=== PATIENT | female | born 1960 | race Caucasian/White ===

== ENCOUNTER 2023-11-07 09:41 | Outpatient (CLI) | payer MEDICARE, MEDICAID, SELFPAY ==
--- NOTE | 2023-11-07 11:07 | ECG_ITS ---
Test Date: 2023-11-07 11:27:26 Measurements Intervals [place] Rate: 75 P: 28 SC: 153 QRS: 25 QRSD: 80 T: 45 QT: 376 QTc: 422 Interpretive Statements SINUS RHYTHM DELAYED PRECORDIAL R/S TRANSITION BASELINE ARTIFACT- I, II, III, AVR, AVL, AVF BORDERLINE ECG No previous ECG available for comparison Electronically Signed On 11-07-2023 13:44:48 CDT by Abdias Harris D.O.
[2023-11-07 11:52] LABS: Basophils Percent Auto 0.5 % (0.2-1.2); Eosinophils Percent Auto 0.2 % (0-4.4); Hematocrit 44.8 % (37.0-47.0); Hemoglobin 14.8 g/dL (12.0-15.0); Immature Granulocyte Absolute 0.03 K/mm3 (0.00-0.031); Immature Granulocyte Percent A 0.4 % (0-0.5); Immature Platelet Fraction Pct 5.7 % (0.9-11.2); Lymphocytes Absolute Auto 1.85 K/mm3 (0.9-3.2); Mean Corpuscular Hemoglobin 33.9 pg (26-34); Mean Corpuscular Volume 102.8 fl (80-100); Mean Platelet Volume 10.9 fl (7.4-10.4); Monocytes Absolute Auto 0.8 K/mm3 (0.1-0.6); Monocytes Percent Auto 9.1 % (2.6-8.5); Neutrophils Absolute Auto 5.7 K/mm3 (1.3-6.7); Neutrophils Percent Auto 67.8 % (45.5-73.1); Platelet Count Result 146 k/mm3 (150-375); Red Blood Count 4.36 M/mm3 (4.2-5.4); Red Cell Distribution Width 12.2 % (11.5-14.5); White Blood Count 8.4 K/mm3 (4.5-10.0)
[2023-11-07 11:58] LABS: Albumin Level 4.6 g/dL (3.5-5.1)
[2023-11-07 12:04] LABS: Anion Gap 9 mmol/L (4-12); Blood Urea Nitrogen 19 mg/dL (7-17); Calcium 10.1 mg/dL (8.4-10.2); Carbon Dioxide 24 mmol/L (22-30); Chloride 105 mmol/L (98-107); Estimated Glomerular Filt Rate 45; Glucose 82 mg/dL (65-110); Potassium 4.6 mmol/L (3.4-5.0); Sodium 138 mmol/L (137-145)
[2023-11-07 12:05] LABS: Urine Cotinine NEGATIVE
[2023-11-07 13:02] LABS: MRSA (PCR) NOT DETECTED (NOT DETECTE)
== END 2023-11-07 09:42 | disposition home or self-care (01) ==
PROVIDERS: Anesthesiology; PCP Internal Medicine; Visit Provider Orthopaedic Surgery
DX: Z01.818 Encounter for other preprocedural examination (principal); M17.12 Unilateral primary osteoarthritis, left knee; E11.9 Type 2 diabetes mellitus without complications
CPT/HCPCS: 36415; 80048; 80307; 82040; 83036; 85025; 85055; 86850; 86900; 86901; 87641; 93005

== ENCOUNTER 2023-11-15 13:57 | Observation (INO) | payer MEDICARE, MEDICAID, SELFPAY ==
[2023-11-07 10:02] VITALS: BMI 32.3
--- NOTE | 2023-11-07 10:36 | PC.NURSE ---
Addendum entered by Nayely Olmstead RN 11/07/23 10:48: TOTAL JOINT CLASS 11/09/23 AT 10 AM POB 2 Original Note: Report to the Outpatient Waiting Room, entrance under the green pavilion located off [facility], at time _6AM on date __11/14/23 . Planned Procedure Time: __7:30 AM .? Time changes happen often and if your time is changed the preop area will call you the afternoon before. - You and your visitor will be asked to self-screen and do not enter if you have any COVID symptoms. Please call surgeon if you need to reschedule. - A mask is optional within the hospital at this time. Patients may have clear liquids (water, carbonated beverages, clear teas, apple juice) until 3 hours prior to surgery( 4:30AM) with a maximum of 20 ounces. - No food from midnight until time of surgery and no smoking - Infants may have breast milk until 4 hours before surgery, formula 6 hours prior to surgery. - Children will be allowed to drink immediately following surgery.? If applicable, please bring a bottle or sippy cup to assist with drinking. Juice, water, soda, and popsicles are readily available.? For infants on formula, please bring formula the day of surgery.? Pacifiers are allowed. Take only the following medications with a SIP of water on the morning of surgery: _ALPRAZOLAM,ARIPIPRAZOLE,EYE DROPS,HYDROXYZINE, DO NOT STOP ANY OF YOUR OTHER PRESCRIPTION MEDICATIONS PRIOR TO SURGERY EXCEPT THE FOLLOWING Medications to discontinue per physician HOLD ALL VITAMINS AND SUPPLEMENTS 3 DAYS PRE OP .LAST DOSE11/10/23 Date to take last dose Please no make-up, nail arabic, hairspray, perfume, deodorant, or body powder the day of surgery.? No jewelry (including any body piercings) or valuables the day of surgery, leave them at home.? Please take a shower or bath the night before, or the morning of, surgery with an antibacterial soap.? Wear comfortable, loose fitting clothing.? Children are encouraged to wear pajamas. - Jewelry must be removed prior to entering the operating room.? Rings and piercings that are not removed may be cut off. - The hospital will not accept responsibility for valuables.? - Please leave all valuables, including medications, at home the day of surgery. If you are going home after surgery, a licensed public transit trolley driver must drive you home.? - NO public transportation without another adult if you receive anesthesia. - We recommend that an adult stay with you for 24 hours following discharge. - We also recommend that you do not drive, make important decision, drink alcoholic beverages, or take any drugs that were not prescribed by your health care provider for at least 24 hours after your discharge time. For Pediatric surgeries, we recommend two adults accompany the child home. Follow any additional instructions given to you from your surgeon. VERBAL AND WRITTEN instructions given to _PATIENT and asked if any additional questions and then verbalized understanding. Patient advised to call surgeon office or pre surgery nurse liaison [phone] if any additional questions.
[2023-11-07 11:05] VITALS: BP 105/74; PULSE 84; RESP 18; TEMP 36.7; O2SAT 97
--- NOTE | 2023-11-10 07:32 | PM.IMHP ---
H&P: HPI History of Present Illness Date/Time: 11/10/23 07:32 Chief Complaint: Patient has osteoarthritis left knee. She has had extensive conservative treatment and has failed conservative treatment at this time. She would like to proceed knee replacement surgery. Review of Systems Musculoskeletal: Musculoskeletal: Reports myalgias, Reports arthralgias, Reports joint swelling and Reports stiffness [facility] Family History Family History Other Bipolar 1 disorder Diabetes mellitus Hypertension Social History Social History (Updated 10/11/23 @ 11:15 by KRISTOPHER Brady) Smoking packs per day: 0.5 Smoking cigarettes per day: 10.0 Years smoked: 45 Smoking pack-years: 22.50 Smoking status: Former smoker Tobacco type: cigarettes Second hand tobacco smoke exposure: Yes Smoking end date: 10/04/23 Additional smoking assessment comments: DENIES ANY FORM OF TOBACCO USE Alcohol intake: never Substance use: never Substance use type: does not use Do You Feel Safe in your Home?: Yes Lack of Transportation: No Lack of Food: Never True Current Housing: I Have Housing Concerned About Future Housing: No Difficulty Paying Gas/Electric Bills: No Difficulty Paying for Meds: No Currently Unemployed: No Education: High School Diploma/GED Difficulty w/ Childcare or Family Care: No Living arrangements: alone Additional living arrangements comments: LIVES AT [place] Additional occupation/education comments: disabled Gender identity (if verbalized by the patient): Female Spiritual care concerns: No Meds Home Medications and Allergies Home Medications Medication Instructions Recorded Confirmed Type albuterol sulfate 90 mcg/actuation 1 puff inhalation PRN PRN 09/29/23 11/07/23 History aerosol inhaler Shortness Of Breath alprazolam 0.5 mg tablet 0.5 mg PO TID 09/29/23 11/07/23 History aripiprazole 15 mg tablet 7.5 mg PO DAILY 09/29/23 11/07/23 History atorvastatin 40 mg tablet 40 mg PO DAILY 09/29/23 11/07/23 History azelastine 0.05 % eye drops 1 drp EACH EYE BID 09/29/23 11/07/23 History baclofen 20 mg tablet 20 mg PO PRN PRN Muscle Spasm 09/29/23 11/07/23 History dicyclomine 10 mg capsule 10 mg PO PRN PRN IBS 09/29/23 11/07/23 History empagliflozin 25 mg tablet 25 mg PO DAILY 09/29/23 11/07/23 History (Jardiance) ergocalciferol (vitamin D2) 1,250 1,250 mcg PO MONTHLY 09/29/23 11/07/23 History mcg (50,000 unit) capsule (Vitamin D2) fluvoxamine 100 mg tablet 100 mg PO QHS 09/29/23 11/07/23 History fluvoxamine 50 mg tablet 50 mg PO QHS 09/29/23 11/07/23 History hydroxyzine pamoate 25 mg capsule 25 mg PO TID 09/29/23 11/07/23 History lisinopril 20 mg tablet 20 mg PO DAILY 09/29/23 11/07/23 History prazosin 1 mg capsule 1 mg PO HS 09/29/23 11/07/23 History acetaminophen 500 mg capsule 1,000 mg PO Q6H PRN Pain 11/07/23 11/07/23 History cyanocobalamin (vitamin B-12) 1,000 mcg PO DAILY 11/07/23 11/07/23 History 1,000 mcg tablet dulaglutide 3 mg/0.5 mL 3 mg subcut WEEKLY 11/07/23 11/07/23 History subcutaneous pen injector (Trulicity) Allergies Allergy/AdvReac Type Severity Reaction Status Date / Time Penicillins AdvReac Intermediate Hives Verified 11/07/23 10:04 risperidone [From Risperdal] AdvReac Intermediate Swelling Verified 11/07/23 10:04 of Lip/Tongue/Throat tramadol AdvReac Intermediate Swelling Verified 11/07/23 10:04 of Lip/Tongue/Throat Exam Narrative: Examination of left knee demonstrates motion from 3-110 degrees. She has varus deformity grinding crepitus and pain with manipulation. She walks with an antalgic gait. Neurologically she is intact. Eyes: General: appearance normal, both eyes and all related structures Neck: Neck: supple Resp: Effort & Inspection: normal respiratory effort Cardio: Rate: regular rate Rhythm: regular rhythm Radiology Report
[2023-11-14] VITALS (13 sets, daily range): BP systolic 98–119; BP diastolic 52–75; PULSE 87–102; RESP 16–24; TEMP 36.5–37.8; O2SAT 94–100
[2023-11-14] MEDS: ACETAMINOPHEN 500 MG TABLET 1000 MG PO (06:31)
--- NOTE | 2023-11-14 06:38 | WPDANESEPPF ---
Anes - Initial Pre Proc Eval Procedure: Operation Date: 11/14/23 07:30 Proposed Procedures p Left Total Knee Arthroplasty - Ruben Del Valle MD Date/Time: 11/14/23 06:38 Surgeon: Ruben Del Valle MD Pre Op Diagnosis: oa left knee Patient Data Age: 63 Gender: F Height: 1.65 m Weight: 88 kg Last Vital Signs Temp 36.7 C 11/07/23 11:05 Pulse 84 11/07/23 11:05 Resp 18 11/07/23 11:05 BP 105/74 11/07/23 11:05 Pulse Ox 97 11/07/23 11:05 O2 Del Method Room Air 11/07/23 11:05 Allergies Allergy/AdvReac Type Severity Reaction Status Date / Time Penicillins AdvReac Intermediate Hives Verified 11/14/23 06:08 risperidone [From Risperdal] AdvReac Intermediate Swelling Verified 11/14/23 06:08 of Lip/Tongue/Throat tramadol AdvReac Intermediate Swelling Verified 11/14/23 06:08 of Lip/Tongue/Throat Home Medications Medication Instructions Recorded Confirmed Type albuterol sulfate 90 mcg/actuation 1 puff inhalation PRN PRN 09/29/23 11/07/23 History aerosol inhaler Shortness Of Breath alprazolam 0.5 mg tablet 0.5 mg PO TID 09/29/23 11/07/23 History aripiprazole 15 mg tablet 7.5 mg PO DAILY 09/29/23 11/07/23 History atorvastatin 40 mg tablet 40 mg PO DAILY 09/29/23 11/07/23 History azelastine 0.05 % eye drops 1 drp EACH EYE BID 09/29/23 11/07/23 History baclofen 20 mg tablet 20 mg PO PRN PRN Muscle Spasm 09/29/23 11/07/23 History dicyclomine 10 mg capsule 10 mg PO PRN PRN IBS 09/29/23 11/07/23 History empagliflozin 25 mg tablet 25 mg PO DAILY 09/29/23 11/07/23 History (Jardiance) ergocalciferol (vitamin D2) 1,250 1,250 mcg PO MONTHLY 09/29/23 11/07/23 History mcg (50,000 unit) capsule (Vitamin D2) fluvoxamine 100 mg tablet 100 mg PO QHS 09/29/23 11/07/23 History fluvoxamine 50 mg tablet 50 mg PO QHS 09/29/23 11/07/23 History hydroxyzine pamoate 25 mg capsule 25 mg PO TID 09/29/23 11/07/23 History lisinopril 20 mg tablet 20 mg PO DAILY 09/29/23 11/07/23 History prazosin 1 mg capsule 1 mg PO HS 09/29/23 11/07/23 History acetaminophen 500 mg capsule 1,000 mg PO Q6H PRN Pain 11/07/23 11/07/23 History cyanocobalamin (vitamin B-12) 1,000 mcg PO DAILY 11/07/23 11/07/23 History 1,000 mcg tablet dulaglutide 3 mg/0.5 mL 3 mg subcut WEEKLY 11/07/23 11/07/23 History subcutaneous pen injector (Trulicity) rivaroxaban 10 mg tablet (Xarelto) 10 mg PO DAILY PE Prophylaxis s/p 11/11/23 Rx joint replacement surgery 10 days #10 tabs Patient hx anesthesia problems: none Family hx anesthesia problems: none Results Review: All pre-operative results and documents have been reviewed as part of the pre-operative evaluation. [facility] Past Medical History Medical History (Updated 11/14/23 @ 06:39 by Zhou Alcala DO) Bipolar disorder Diabetes type 2, controlled GERD (gastroesophageal reflux disease) History of uterine cancer Hyperlipidemia Hypertension OCD (obsessive compulsive disorder) Family History Family History Other Bipolar 1 disorder Diabetes mellitus Hypertension Social History Social History (Updated 10/11/23 @ 11:15 by KRISTOPHER Brady) Smoking packs per day: 0.5 Smoking cigarettes per day: 10.0 Years smoked: 45 Smoking pack-years: 22.50 Smoking status: Former smoker Tobacco type: cigarettes Second hand tobacco smoke exposure: Yes Smoking end date: 10/04/23 Additional smoking assessment comments: DENIES ANY FORM OF TOBACCO USE Alcohol intake: never Substance use: never Substance use type: does not use Do You Feel Safe in your Home?: Yes Lack of Transportation: No Lack of Food: Never True Current Housing: I Have Housing Concerned About Future Housing: No Difficulty Paying Gas/Electric Bills: No Difficulty Paying for Meds: No Currently Unemployed: No Education: High School Diploma/GED Difficulty w/ Childcare or Family Care: No
--- NOTE | 2023-11-14 06:40 | WPDHPUPDATE1 ---
History and Physical Update Update Date/Time: 11/14/23 06:40 History and Physical has been reviewed, including an updated exam of the patient. There are NO changes in the patient's condition. Risks, benefits, and alternatives have been discussed and questions answered. Patient agrees to proceed with procedure.
[2023-11-14] MEDS: LACTATED RINGERS 1,000 ML 30 ML IV CONT ×2 (06:44→09:22)
[2023-11-14] MEDS: VANCOMYCIN 1,250 MG/NS 250 ML BAG 166.67 MG IVPB (06:45)
[2023-11-14 06:48] LABS: Glucose Point of Care 91 mg/dl (65-105)
[2023-11-14] MEDS: TRANEXAMIC ACID 1,000MG/ISO100 1,000 MG/100 ML BAG 200 MG IVPB (07:08)
--- NOTE | 2023-11-14 07:18 | WPDANESPNB ---
Anes - Peripheral Nerve Block Date/Time: 11/14/23 07:18 I have discussed with the patient/family/POA the placement of a peripheral nerve block for post-operative pain management, including associated risks, benefits, complications, and side effects. Alternative methods of post-operative analgesia were detailed. Questions were solicited and answers provided to the satisfaction of the patient/family/POA. Time-Out: A pre-procedural Time-Out was completed immediately before starting the procedure and confirmed: Patient Identification, Site, Procedure, Patient Position and the Availability of Requisite Equipment. Clinical Indications: Acute post-operative pain management requested by the operative surgeon. Nerve Block Insertion Note Anes-nerve block: adductor canal left Patient position: supine Skin prep: chlorhexidine Needle: 22 gauge, stimulating, insulated echogenic needle. Needle length: 80 mm Technique: ultrasound Injectate: bupivacaine 0.5% with epi 5 mcg/ml (30cc - no epi) Observations: tolerated well Complications: none Procedure start time:: 712 Procedure end time:: 716
[2023-11-14] MEDS: ceFAZolin 2 GM/D5W 50 ML 2 GM/50 ML BAG IVPB ×3 (07:25→23:20)
[2023-11-14] MEDS: SODIUM CHLORIDE 0.9% IV 38.7 ML, MORPHINE SULFATE INJ (*CRX) 2 MG, ROPivacaine HCL 1% 2... INFILTRATE (08:23)
--- NOTE | 2023-11-14 08:56 | P.OP_ITS ---
Procedure Note - Detailed Date of Procedure 11/14/23 Pre-op Diagnosis Osteoarthritis LEFT knee Post-op Diagnosis Same Procedure Performed LEFT total knee arthroplasty Surgeon Ruben Del Valle MD Disabilities Services Officer Tex Mercado Anesthesia General Indications Pain and Arthritis Description of Procedure The patient was brought to operating room #8. A general anesthetic was administered. Placed on the operating table and sterilely prepped and draped in usual manner. A longitudinal incision was made. Tourniquet inflated to 300 mmHg for a total of 45 minutes. Dissection was carried down to the fascia. Medial parapatellar incision was made and the patella subluxated laterally. Patella cut from 23 to 15 mm and sized for a 34 mm button. The tibia was cut perpendicular to the long axis and femur cut in 5 degrees of valgus. A 65 femur trialed. 67 tibia was felt to fit the best. The soft tissues balanced, hemostasis obtained. All [address], 67 tibia, 65 femur, 34 mm patella, and 10AS mm poly. Motion was 0-125 degrees with good stability in both flexion and extension. The wound was closed with #2 Vicryl, 2-0 Vicryl and sergo. [employer]plants [employer] Estimated Blood Loss 200 Drains No Packing No Pathology None sent Complications No immediate complications Condition Stable Disposition PACU [facility] Billing Surgery - Charge Forward: Surgery Billing (40005 Total Knee)
[2023-11-14] MEDS: fentaNYL CITRATE INJ (*CRX) 100 MCG/2 ML VIAL 25 MCG IV PUSH ×4 (09:32→10:07)
[2023-11-14 10:08] LABS: Glucose Point of Care 148 mg/dl (65-105)
--- NOTE | 2023-11-14 10:53 | ADMGEN ---
This patient, Chitra Davila, was admitted to [facility] Surg Room 309-01. Patient/family oriented to hospital policies and general routines including ID bracelet, bed and alarms, visiting hours, pain management, procedures, bathroom and other care routines, personal items, smoking policy, room service/diet, and visiting hours. Information on how to activate the Rapid Response Team has been discussed. Patient/Family are encouraged to report perceived risks to care and to ask questions if they do not understand what they are told or what they should do.
[2023-11-14] MEDS: HYDROcodone/acetaminophen (*CRX) 7.5-325 MG TABLET 1 TAB PO ×2 (11:17→15:14)
[2023-11-14] MEDS: ARIPiprazole 5 MG TABLET PO (12:10)
[2023-11-14] MEDS: EMPAGLIFLOZIN 25 MG TABLET PO (12:10)
[2023-11-14] MEDS: hydrOXYzine pamoate 25 MG CAPSULE PO ×2 (12:10→17:18)
[2023-11-14] MEDS: ARIPiprazole 2.5 MG TABLET PO (12:10)
[2023-11-14] MEDS: ALPRAZolam (*CRX) 0.5 MG TABLET PO ×2 (12:10→17:18)
[2023-11-14] MEDS: IBUPROFEN IV 800 MG/200 ML 800 MG/200 ML BAG 400 MG IVPB (12:14)
[2023-11-14] MEDS: lisinopriL 20 MG TABLET PO (12:18)
[2023-11-14 13:44] LABS: Alanine Aminotransferase 27 U/L (6-35); Albumin Level 4.2 g/dL (3.5-5.1); Alkaline Phosphatase 77 U/L (38-126); Anion Gap 12 mmol/L (4-12); Aspartate Amino Transferase 22 U/L (14-36); Bilirubin,Total 0.7 mg/dL (0.2-1.3); Blood Urea Nitrogen 16 mg/dL (7-17); Calcium 9.6 mg/dL (8.4-10.2); Carbon Dioxide 22 mmol/L (22-30); Chloride 105 mmol/L (98-107); Estimated CRCL calculation 42 ml/min; Estimated Glomerular Filt Rate 41; Glucose 120 mg/dL (65-110); Potassium 4.2 mmol/L (3.4-5.0); Sodium 139 mmol/L (137-145)
[2023-11-14 13:45] LABS: Basophils Percent Auto 0.2 % (0.2-1.2); Hematocrit 41.5 % (37.0-47.0); Hemoglobin 13.8 g/dL (12.0-15.0); Immature Granulocyte Absolute 0.05 K/mm3 (0.00-0.031); Immature Granulocyte Percent A 0.5 % (0-0.5); Immature Platelet Fraction Pct 6.1 % (0.9-11.2); Lymphocytes Absolute Auto 0.41 K/mm3 (0.9-3.2); Mean Corpuscular HGB Conc 33.3 g/dl (32-36); Mean Corpuscular Hemoglobin 33.9 pg (26-34); Mean Platelet Volume 10.7 fl (7.4-10.4); Monocytes Absolute Auto 0.2 K/mm3 (0.1-0.6); Monocytes Percent Auto 2.4 % (2.6-8.5); Neutrophils Absolute Auto 9.5 K/mm3 (1.3-6.7); Neutrophils Percent Auto 92.9 % (45.5-73.1); Platelet Count Result 127 k/mm3 (150-375); Red Blood Count 4.07 M/mm3 (4.2-5.4); White Blood Count 10.2 K/mm3 (4.5-10.0)
[2023-11-14] MEDS: HYDROmorphone HCL INJ (*CRX) 1 MG/ML SYR 0.5 MG IV PUSH (13:48)
--- NOTE | 2023-11-14 14:29 | PM.IMCN ---
HPI Date of Consult Consult date: 11/14/23 Requesting Physician: Ruben Del Valle MD Primary Care Provider: Basilio Calloway MD Consult Narrative Narrative: Chitra Davila is a 63 year old female [facility] Past Medical History Medical History (Updated 11/14/23 @ 06:39 by Zhou Alcala DO) Bipolar disorder Diabetes type 2, controlled GERD (gastroesophageal reflux disease) History of uterine cancer Hyperlipidemia Hypertension OCD (obsessive compulsive disorder) Family History Family History Other Bipolar 1 disorder Diabetes mellitus Hypertension Social History Social History (Updated 10/11/23 @ 11:15 by KRISTOPHER Brady) Smoking packs per day: 0.5 Smoking cigarettes per day: 10.0 Years smoked: 45 Smoking pack-years: 22.50 Smoking status: Current some day smoker Tobacco type: cigarettes Second hand tobacco smoke exposure: Yes Smoking end date: 10/04/23 Additional smoking assessment comments: DENIES ANY FORM OF TOBACCO USE Alcohol intake: never Substance use: never Substance use type: does not use Do You Feel Safe in your Home?: Yes Lack of Transportation: No Lack of Food: Never True Current Housing: I Have Housing Concerned About Future Housing: No Difficulty Paying Gas/Electric Bills: No Difficulty Paying for Meds: No Currently Unemployed: No Education: Don't Know Difficulty w/ Childcare or Family Care: No Living arrangements: alone Additional living arrangements comments: LIVES AT [place] Additional occupation/education comments: disabled Gender identity (if verbalized by the patient): Female Spiritual care concerns: No Meds Home Medications and Allergies Home Medications Medication Instructions Recorded Confirmed Type albuterol sulfate 90 mcg/actuation 1 puff inhalation PRN PRN 09/29/23 11/07/23 History aerosol inhaler Shortness Of Breath alprazolam 0.5 mg tablet 0.5 mg PO TID 09/29/23 11/14/23 History aripiprazole 15 mg tablet 7.5 mg PO DAILY 09/29/23 11/14/23 History atorvastatin 40 mg tablet 40 mg PO DAILY 09/29/23 11/07/23 History azelastine 0.05 % eye drops 1 drp EACH EYE BID 09/29/23 11/07/23 History baclofen 20 mg tablet 20 mg PO PRN PRN Muscle Spasm 09/29/23 11/07/23 History dicyclomine 10 mg capsule 10 mg PO PRN PRN IBS 09/29/23 11/07/23 History empagliflozin 25 mg tablet 25 mg PO DAILY 09/29/23 11/07/23 History (Jardiance) ergocalciferol (vitamin D2) 1,250 1,250 mcg PO MONTHLY 09/29/23 11/07/23 History mcg (50,000 unit) capsule (Vitamin D2) fluvoxamine 100 mg tablet 100 mg PO QHS 09/29/23 11/07/23 History fluvoxamine 50 mg tablet 50 mg PO QHS 09/29/23 11/07/23 History hydroxyzine pamoate 25 mg capsule 25 mg PO TID 09/29/23 11/14/23 History lisinopril 20 mg tablet 20 mg PO DAILY 09/29/23 11/07/23 History prazosin 1 mg capsule 1 mg PO HS 09/29/23 11/07/23 History acetaminophen 500 mg capsule 1,000 mg PO Q6H PRN Pain 11/07/23 11/07/23 History cyanocobalamin (vitamin B-12) 1,000 mcg PO DAILY 11/07/23 11/07/23 History 1,000 mcg tablet dulaglutide 3 mg/0.5 mL 3 mg subcut WEEKLY 11/07/23 11/07/23 History subcutaneous pen injector (Trulicity) rivaroxaban 10 mg tablet (Xarelto) 10 mg PO DAILY PE Prophylaxis s/p 11/11/23 Rx joint replacement surgery 10 days #10 tabs Allergies Allergy/AdvReac Type Severity Reaction Status Date / Time Penicillins AdvReac Intermediate Hives Verified 11/14/23 06:08 risperidone [From Risperdal] AdvReac Intermediate Swelling Verified 11/14/23 06:08 of Lip/Tongue/Throat tramadol AdvReac Intermediate Swelling Verified 11/14/23 06:08 of Lip/Tongue/Throat Vital Signs Vital Signs - 24 hr 11/14/23 07:04 11/14/23 09:22 11/14/23 09:35 Temperature 36.8 C 37.1 C Pulse Rate 87 94 100 Respiratory Rate 16 18 20 Blood Pressure 116/69 114/69 115/69 Pulse Oximetry 97 100 100 Oxygen Deliver
--- NOTE | 2023-11-14 14:31 | PM.IMCN ---
Assessment and Plan Assessment and plan (1) Status post total knee replacement, left: Code(s): Z96.652 - Presence of left artificial knee joint Status: Acute Assessment and Plan: Postop day 0 knee arthroplasty for osteoarthritis Ancef 3 doses for surgical prophylaxis Pain regimen, DVT prophylaxis per ortho. Xarelto for 12 doses. Bowel regimen with senna, Miralax PT/OT consulted, recs appreciated Post op low grade temperature 100.1. Add IS. (2) Bipolar disorder: Code(s): F31.9 - Bipolar disorder, unspecified Status: Acute Assessment and Plan: Stable. Resuming home medications Xanax, Abilify, and hydroxyzine. Fluvoxamine is non-formulary. If patient can have someone bring from home it would be fine to resume. (3) Hypertension: Code(s): I10 - Essential (primary) hypertension Status: Acute Assessment and Plan: Blood pressures are stable ranging 116/69-107/64. Lisinopril 20 mg daily to resume tomorrow. (4) Diabetes type 2, controlled: Code(s): E11.9 - Type 2 diabetes mellitus without complications Status: Acute Assessment and Plan: Hemoglobin A1C 5.0% Jardiance held for now Diabetic diet SSI moderate dose AC/HS accu checks Hypoglycemia protocol HPI Date of Consult Consult date: 11/14/23 Requesting Physician: Ruben Del Valle MD Primary Care Provider: Basilio Calloway MD Consult Narrative Narrative: Chitra Davila is a 63 year old female with a history of bipolar, diabetes, uterine cancer, hypertension, hyperlipidemia and osteoarthritis who presented today for an elective left total knee arthroplasty with Dr. Del Valle. Hospitalist team has been consulted for assist with medical management of chronic conditions. She is seen sitting up in the chair after surgery. Pain is rated at an 8/10 but she just received a pain pill. She denies headache, dizziness, sore throat, nasal drainage, fever, chills, chest pain, shortness of breath, abdominal pain, nausea, vomiting, constipation, or diarrhea. Her last bowel movement was 1 day ago. Review of Systems Review of Systems: All systems reviewed & are unremarkable except as noted in HPI and below PMFSH Past Medical History Medical History (Updated 11/14/23 @ 14:47 by Grace Mcleod APRN) Bipolar disorder Diabetes type 2, controlled GERD (gastroesophageal reflux disease) History of uterine cancer Hyperlipidemia Hypertension OCD (obsessive compulsive disorder) Surgical History Surgical History (Updated 11/14/23 @ 14:47 by Grace Mcleod APRN) History of total right knee replacement Status post total knee replacement, left Family History Family History Other Bipolar 1 disorder Diabetes mellitus Hypertension Social History Social History (Updated 11/14/23 @ 14:49 by Grace Mcleod APRN) Social History: The patient states she lives at home alone for stairs into her home. She has a daughter who lives close in [place] who can assist with her. She also has a son who lives in [facility]. 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 She denies alcohol use. She smokes on and off approximately a half a pack-a-day cigarette was 1 month ago. She denies illicit drug use Smoking packs per day: 0.5 Smoking cigarettes per day: 10.0 Years smoked: 45 Smoking pack-years: 22.50 Smoking status: Current some day smoker Tobacco type: cigarettes Second hand tobacco smoke exposure: Yes Smoking end date: 10/04/23 Additional smoking assessment comments: DENIES ANY FORM OF TOBACCO USE Alcohol intake: never Substance use: never Substance use type: does not use Do You Feel Safe in your Home?: Yes Lack of Transportation: No Lack of Food: Never True Current Housing: I Have Housing Concerned About Future Housing: No Difficulty Paying Gas/Electric Bills: No Difficulty Paying for Meds: No Curr
[2023-11-14 17:07] LABS: Glucose Point of Care 122 mg/dl (65-105)
[2023-11-14] MEDS: RIVAROXABAN 10 MG TABLET PO (17:18)
[2023-11-14] MEDS: SENNA/DOCUSATE SODIUM TABLET 2 TAB PO (17:18)
[2023-11-14] MEDS: CELECOXIB 200 MG CAPSULE PO (17:18)
[2023-11-14] MEDS: PRAZOSIN HCL 1 MG CAPSULE PO (20:40)
[2023-11-14 21:09] LABS: Hemoglobin A1C 4.9 % (<5.7)
[2023-11-14 22:16] LABS: Glucose Point of Care 153 mg/dl (65-105)
[2023-11-15] VITALS (7 sets, daily range): BP systolic 96–138; BP diastolic 53–74; PULSE 72–102; RESP 16–22; TEMP 35.5–36.7; O2SAT 94–98
--- NOTE | ~2023-11-15 | XR_ITS ---
EXAMINATION: [id number] DATE: 11/14/2023 09:33 INDICATION: Left knee arthroplasty. Postop. TECHNIQUE: 2 views of left knee were obtained. COMPARISON: Left knee radiographs 09/29/2023 FINDINGS: There is a total left knee arthroplasty with patellar resurfacing. No fracture. There is ga s in the knee joint and soft tissues, consistent with recent surgery. Anterior skin sergo are noted . IMPRESSION: 1. Total left knee arthroplasty in near-anatomic alignment. Reviewed, dictated and finalized at location A.
[2023-11-15] MEDS: HYDROcodone/acetaminophen (*CRX) 7.5-325 MG TABLET 1 TAB PO ×5 (01:39→20:17)
[2023-11-15] MEDS: ceFAZolin 2 GM/D5W 50 ML 2 GM/50 ML BAG IVPB (06:10)
--- NOTE | 2023-11-15 06:57 | PM.PNORT ---
Progress Note: A&P Assessment and Plan (1) History of knee replacement procedure of left knee: Code(s): Z96.652 - Presence of left artificial knee joint Status: Acute Assessment and Plan: Patient is status post total knee arthroplasty left. Overall she is progressing reasonably well. She is having some pain issues. Will ambulate her today and continue with therapy. Awaiting discharge disposition. Subjective Subjective Date/Time Seen: 11/15/23 06:57 Post Op day: 1 Principal diagnosis: LEFT Total Knee Review of Systems Musculoskeletal: Musculoskeletal: Reports myalgias, Reports arthralgias, Reports joint swelling and Reports stiffness Exam Narrative: The patient's dressing is intact. Neurologically she is intact. She is able to ambulate without much difficulty. She is complaining of a moderate amount of pain. Objective Data Vital Signs Vital Signs: Vital Signs - 24 hr 11/14/23 07:04 11/14/23 09:22 11/14/23 09:35 Temperature 98.3 F 98.7 F Pulse Rate 87 94 100 Respiratory Rate 16 18 20 Blood Pressure 116/69 114/69 115/69 Pulse Oximetry 97 100 100 Oxygen Delivery Room Air Simple Face Mask Simple Face Mask Oxygen Flow Rate 8 8 11/14/23 09:50 11/14/23 10:05 11/14/23 10:20 Temperature Pulse Rate 99 97 98 Respiratory Rate 18 18 18 Blood Pressure 108/72 110/73 108/75 Pulse Oximetry 94 94 Oxygen Delivery Room Air Room Air Room Air Oxygen Flow Rate 11/14/23 10:35 11/14/23 11:00 11/14/23 11:15 Temperature 99.7 F H 97.8 F Pulse Rate 97 97 96 Respiratory Rate 20 19 24 H Blood Pressure 108/67 104/64 113/64 Pulse Oximetry 97 96 Oxygen Delivery Room Air Oxygen Flow Rate 11/14/23 11:45 11/14/23 12:45 11/14/23 13:59 Temperature 100.1 F H 98.4 F Pulse Rate 100 102 H Respiratory Rate 18 19 Blood Pressure 119/62 107/64 Pulse Oximetry 97 98 Oxygen Delivery Room Air Oxygen Flow Rate 11/14/23 14:47 11/14/23 16:22 11/14/23 20:00 Temperature 97.7 F Pulse Rate 91 Respiratory Rate 18 Blood Pressure 112/67 Pulse Oximetry 95 Oxygen Delivery Room Air Room Air Oxygen Flow Rate 11/14/23 22:00 11/15/23 00:22 11/15/23 04:00 Temperature 98.1 F 98.1 F 97.1 F L Pulse Rate 94 92 98 Respiratory Rate 18 20 20 Blood Pressure 98/52 L 107/53 L 117/54 L Pulse Oximetry 95 95 96 Oxygen Delivery Oxygen Flow Rate Intake/Output Intake/Output: Intake & Output 11/12/23 11/13/23 11/14/23 11/15/23 23:59 23:59 23:59 23:59 Intake Total 1308 550 Balance 1308 550 Meds/Results Medications: Active Medications Generic Name Dose Route Start Last Admin Trade Name Freq PRN Reason Stop Dose Admin Hydrocodone Bitart/Acetaminophen 1 tab 11/14/23 10:37 Hydrocodone/Acetaminophen (*Crx) 5-325 Mg Tablet PO Q4H PRN Pain Rated 4-6 Hydrocodone Bitart/Acetaminophen 1 tab 11/14/23 10:37 11/15/23 01:39 Hydrocodone/Acetaminophen (*Crx) 7.5-325 Mg Tablet PO 1 tab Q4H PRN Administration Pain Rated 7-10 Albuterol 1 puff 11/14/23 10:37 Albuterol Sulfate (*Sp) Aerosol 1 Puff INHALATION Q4H PRN Shortness Of Breath Alprazolam 0.5 mg 11/14/23 10:37 11/14/23 17:18 Alprazolam (*Crx) 0.5 Mg Tablet PO 0.5 mg TID GAVINO Administration Aripiprazole 2.5 mg 11/14/23 10:55 11/14/23 12:10 Aripiprazole 2.5 Mg Tablet PO 2.5 mg QAM GAVINO Administration Aripiprazole 5 mg 11/14/23 10:55 11/14/23 12:10 Aripiprazole 5 Mg Tablet PO 5 mg QAM GAVINO Administration Atorvastatin Calcium 40 mg 11/15/23 09:00 Atorvastatin 40 Mg Tablet PO DAILY GAVINO Baclofen 20 mg 11/14/23 10:37 Baclofen 10 Mg Tablet PO TID PRN Muscle Spasm Celecoxib 200 mg 11/14/23 17:00 11/14/23 17:18 Celecoxib 200 Mg Capsule PO 200 mg BIDWM GAVINO Administration Cyanocobalamin 1,000 mcg 11/15/23 09:00 Cyanocobalamin 1,000 Mcg Tablet PO DAILY GAVINO Dextrose 12.5 gm 11/14/23 14:22
[2023-11-15 08:01] LABS: Glucose Point of Care 97 mg/dl (65-105)
[2023-11-15 08:18] LABS: Anion Gap 12 mmol/L (4-12); Blood Urea Nitrogen 16 mg/dL (7-17); Carbon Dioxide 21 mmol/L (22-30); Chloride 106 mmol/L (98-107); Estimated CRCL calculation 42 ml/min; Estimated Glomerular Filt Rate 41; Glucose 113 mg/dL (65-110); Potassium 4.7 mmol/L (3.4-5.0); Sodium 139 mmol/L (137-145)
[2023-11-15 08:30] LABS: Basophils Percent Auto 0.3 % (0.2-1.2); Eosinophils Percent Auto 0.1 % (0-4.4); Hematocrit 39.1 % (37.0-47.0); Immature Granulocyte Absolute 0.06 K/mm3 (0.00-0.031); Immature Granulocyte Percent A 0.6 % (0-0.5); Lymphocytes Absolute Auto 1.33 K/mm3 (0.9-3.2); Lymphocytes Percent Auto 12.5 % (18.3-44.2); Mean Corpuscular HGB Conc 33.2 g/dl (32-36); Mean Corpuscular Hemoglobin 34.2 pg (26-34); Mean Corpuscular Volume 102.9 fl (80-100); Mean Platelet Volume 12.4 fl (7.4-10.4); Monocytes Absolute Auto 1.5 K/mm3 (0.1-0.6); Monocytes Percent Auto 13.7 % (2.6-8.5); Neutrophils Absolute Auto 7.7 K/mm3 (1.3-6.7); Neutrophils Percent Auto 72.8 % (45.5-73.1); Platelet Count Result 147 k/mm3 (150-375); Red Cell Distribution Width 12.4 % (11.5-14.5); White Blood Count 10.6 K/mm3 (4.5-10.0)
--- NOTE | 2023-11-15 09:12 | PM.IMPN ---
Progress Note: A&P Assessment and Plan (1) Status post total knee replacement, left: Code(s): Z96.652 - Presence of left artificial knee joint Status: Acute Assessment and Plan: Postop day 1 knee arthroplasty for osteoarthritis Ancef 3 doses for surgical prophylaxis Pain regimen, DVT prophylaxis per ortho. Xarelto for 12 doses. Bowel regimen with senna, Miralax PT/OT consulted, recs appreciated Post op low grade temperature 100.1. Add IS (2) Bipolar disorder: Code(s): F31.9 - Bipolar disorder, unspecified Status: Acute Assessment and Plan: Stable. Resuming home medications Xanax, Abilify, and hydroxyzine. Fluvoxamine is non-formulary. If patient can have someone bring from home it would be fine to resume. (3) Hypertension: Code(s): I10 - Essential (primary) hypertension Status: Acute Assessment and Plan: Blood pressures are stable ranging 116/69-107/64 Lisinopril 20 mg daily to resume tomorrow (4) Diabetes type 2, controlled: Code(s): E11.9 - Type 2 diabetes mellitus without complications Status: Acute Assessment and Plan: Hemoglobin A1C 5.0% Jardiance held for now Diabetic diet SSI moderate dose AC/HS accu checks Hypoglycemia protocol Subjective Date/time seen: 11/15/23 09:12 Interval history: No acute events overnight. Patient has been working with therapy. We are waiting for placement. Review of Systems Review of Systems: All systems reviewed & are unremarkable except as noted in HPI and below Exam Narrative: General: appears comfortable, in no acute distress Respiratory: breathing is unlabored with even chest rise/fall, lungs are clear without wheezing, rhonchi, and crackles Cardiovascular: Rate and rhythm regular, normal s1s2, no murmur Abdomen: Soft, round, non-tender, active bowel sounds Extremities: No cyanosis, edema, clubbing. Pulses 2/2. Neuro: A&O x 4, flat affect, delayed response Skin: Warm, dry, intact. Generalized bruising. Surgical incision to left knee with surgical dressing clean dry and intact. Objective Data Vital Signs Vital Signs: Vital Signs - 24 hr 11/14/23 09:22 11/14/23 09:35 11/14/23 09:50 Temperature 98.7 F Pulse Rate 94 100 99 Respiratory Rate 18 20 18 Blood Pressure 114/69 115/69 108/72 Pulse Oximetry 100 100 Oxygen Delivery Simple Face Mask Simple Face Mask Room Air Oxygen Flow Rate 8 8 11/14/23 10:05 11/14/23 10:20 11/14/23 10:35 Temperature Pulse Rate 97 98 97 Respiratory Rate 18 18 20 Blood Pressure 110/73 108/75 108/67 Pulse Oximetry 94 94 97 Oxygen Delivery Room Air Room Air Room Air Oxygen Flow Rate 11/14/23 11:00 11/14/23 11:15 11/14/23 11:45 Temperature 99.7 F H 97.8 F 100.1 F H Pulse Rate 97 96 100 Respiratory Rate 19 24 H 18 Blood Pressure 104/64 113/64 119/62 Pulse Oximetry 96 97 Oxygen Delivery Oxygen Flow Rate 11/14/23 12:45 11/14/23 13:59 11/14/23 14:47 Temperature 98.4 F Pulse Rate 102 H Respiratory Rate 19 Blood Pressure 107/64 Pulse Oximetry 98 Oxygen Delivery Room Air Room Air Oxygen Flow Rate 11/14/23 16:22 11/14/23 20:00 11/14/23 22:00 Temperature 97.7 F 98.1 F Pulse Rate 91 94 Respiratory Rate 18 18 Blood Pressure 112/67 98/52 L Pulse Oximetry 95 95 Oxygen Delivery Room Air Oxygen Flow Rate 11/15/23 00:22 11/15/23 04:00 11/15/23 08:00 Temperature 98.1 F 97.1 F L 96 F L Pulse Rate 92 98 100 Respiratory Rate 20 20 16 Blood Pressure 107/53 L 117/54 L 116/65 Pulse Oximetry 95 96 97 Oxygen Delivery Oxygen Flow Rate 11/15/23 08:00 Temperature Pulse Rate Respiratory Rate Blood Pressure Pulse Oximetry 97 Oxygen Delivery Room Air Oxygen Flow Rate Intake/Output Intake/Output: Intake & Output 11/12/23 11/13/23 11/14/23 11/15/23 23:59 23:59 23:59 23:59 Intake Total 1308 550 Balance 1308 550 Meds/Results Medications: Active
[2023-11-15] MEDS: ARIPiprazole 5 MG TABLET PO (09:17)
[2023-11-15] MEDS: ATORVASTATIN 40 MG TABLET PO (09:17)
[2023-11-15] MEDS: ARIPiprazole 2.5 MG TABLET PO (09:17)
[2023-11-15] MEDS: ALPRAZolam (*CRX) 0.5 MG TABLET PO ×3 (09:17→16:11)
[2023-11-15] MEDS: CELECOXIB 200 MG CAPSULE PO ×2 (09:17→16:10)
[2023-11-15] MEDS: CYANOCOBALAMIN 1,000 MCG TABLET 1000 MCG PO (09:18)
[2023-11-15] MEDS: SENNA/DOCUSATE SODIUM TABLET 2 TAB PO ×2 (09:20→16:10)
[2023-11-15] MEDS: polyethylene glycoL 3350 17 GM POWD.PACK PO (09:21)
[2023-11-15] MEDS: hydrOXYzine pamoate 25 MG CAPSULE PO ×3 (09:21→16:10)
[2023-11-15] MEDS: lisinopriL 20 MG TABLET PO (09:21)
--- NOTE | 2023-11-15 10:24 | WPDANESPN ---
Anes - Prog Note Post-Op Date/Time: 11/15/23 10:24 Cardiovascular status: normal Respiratory status: normal Airway patency: baseline Mental status: baseline Post-Op hydration status: normal Vital Signs: Last Vital Signs Temp 35.5 C L 11/15/23 08:00 Pulse 100 11/15/23 08:00 Resp 16 11/15/23 08:00 BP 116/65 11/15/23 08:00 Pulse Ox 97 11/15/23 08:00 O2 Del Method Room Air 11/15/23 08:00 O2 Flow Rate 8 11/14/23 09:35 Pain Score (VAS): 04/16 I/O: Intake & Output 11/14/23 11/15/23 11/15/23 23:59 07:59 15:59 Intake Total 454 550 222 Balance 454 550 222 Laboratory Tests 11/15/23 07:26 11/15/23 07:26 11/14/23 11/14/23 11/14/23 13:04 13:14 17:01 WBC 10.2 H RBC 4.07 L Hgb 13.8 Hct 41.5 MCV 102.0 H MCH 33.9 MCHC 33.3 RDW 12.0 Plt Count 127 L MPV 10.7 H Immature Gran % (Auto) 0.5 Neut % (Auto) 92.9 H Lymph % (Auto) 4.0 L Rogers % (Auto) 2.4 L Eos % (Auto) 0.0 Baso % (Auto) 0.2 Lymph # (Auto) 0.41 L Rogers # (Auto) 0.2 Eos # (Auto) 0.0 Baso # (Auto) 0.0 Abs Immat Gran (auto) 0.05 H Absolute Neuts (auto) 9.5 H Absolute Nucleated RBC 0.000 Nucleated RBC % 0.0 % Immature Plt Fraction 6.1 Sodium 139 Potassium 4.2 Chloride 105 Carbon Dioxide 22 Anion Gap 12 BUN 16 Creatinine 1.30 H Estim Creat Clear Calc 42 Estimated GFR 41 L Glucose 120 H POC Capillary Glucose 122 H Hemoglobin A1c 4.9 Calcium 9.6 Total Bilirubin 0.7 AST 22 ALT 27 Alkaline Phosphatase 77 Total Protein 7.0 Albumin 4.2 11/14/23 11/15/23 11/15/23 22:12 07:26 07:57 WBC 10.6 H RBC 3.80 L Hgb 13.0 Hct 39.1 MCV 102.9 H MCH 34.2 H MCHC 33.2 RDW 12.4 Plt Count 147 L MPV 12.4 H Immature Gran % (Auto) 0.6 H Neut % (Auto) 72.8 Lymph % (Auto) 12.5 L Rogers % (Auto) 13.7 H Eos % (Auto) 0.1 Baso % (Auto) 0.3 Lymph # (Auto) 1.33 Rogers # (Auto) 1.5 H Eos # (Auto) 0.0 Baso # (Auto) 0.0 Abs Immat Gran (auto) 0.06 H Absolute Neuts (auto) 7.7 H Absolute Nucleated RBC 0.000 Nucleated RBC % 0.0 % Immature Plt Fraction Sodium 139 Potassium 4.7 Chloride 106 Carbon Dioxide 21 L Anion Gap 12 BUN 16 Creatinine 1.30 H Estim Creat Clear Calc 42 Estimated GFR 41 L Glucose 113 H POC Capillary Glucose 153 H 97 Hemoglobin A1c Calcium 10.0 Total Bilirubin AST ALT Alkaline Phosphatase Total Protein Albumin Post-procedural complaints: none Patient Feedback: Patient satisfied with anesthetic care.
[2023-11-15] MEDS: IBUPROFEN IV 800 MG/200 ML 800 MG/200 ML BAG 400 MG IVPB (11:04)
[2023-11-15 11:37] LABS: Glucose Point of Care 130 mg/dl (65-105)
[2023-11-15] MEDS: RIVAROXABAN 10 MG TABLET PO (16:10)
[2023-11-15 16:41] LABS: Glucose Point of Care 117 mg/dl (65-105)
[2023-11-15] MEDS: PRAZOSIN HCL 1 MG CAPSULE PO (20:13)
[2023-11-15] MEDS: FLUVOXAMINE 50 MG PO (20:13)
[2023-11-15 21:08] LABS: Glucose Point of Care 104 mg/dl (65-105)
[2023-11-16] VITALS (8 sets, daily range): BP systolic 94–126; BP diastolic 48–86; PULSE 81–110; RESP 16–22; TEMP 35.9–36.7; O2SAT 94–98
[2023-11-16] MEDS: HYDROcodone/acetaminophen (*CRX) 7.5-325 MG TABLET 1 TAB PO ×4 (02:34→21:10)
--- NOTE | 2023-11-16 06:37 | PM.PNORT ---
Progress Note: A&P Assessment and Plan (1) History of knee replacement procedure of left knee: Code(s): Z96.652 - Presence of left artificial knee joint Status: Acute Assessment and Plan: S/P TKA LEFT. Slow progress. Will need placement Subjective Subjective Date/Time Seen: 11/16/23 06:37 Post Op day: 2 Principal diagnosis: S/P Total Knee Review of Systems Musculoskeletal: Musculoskeletal: Reports myalgias, Reports arthralgias, Reports joint swelling and Reports stiffness Exam Narrative: NVI. Dressing intact Ambulating with assistance Objective Data Vital Signs Vital Signs: Vital Signs - 24 hr 11/15/23 08:00 11/15/23 08:00 11/15/23 12:00 Temperature 96 F L 96.7 F L Pulse Rate 100 102 H Respiratory Rate 16 18 Blood Pressure 116/65 138/74 Pulse Oximetry 97 97 97 Oxygen Delivery Room Air 11/15/23 16:00 11/15/23 20:00 11/15/23 20:00 Temperature 96.6 F L 97.2 F L Pulse Rate 92 92 78 Respiratory Rate 18 18 22 H Blood Pressure 116/62 104/72 Pulse Oximetry 94 94 95 Oxygen Delivery Room Air 11/15/23 23:36 11/16/23 03:54 Temperature 98.1 F 97.3 F L Pulse Rate 72 98 Respiratory Rate 20 22 H Blood Pressure 96/66 L 95/56 L Pulse Oximetry 98 95 Oxygen Delivery Intake/Output Intake/Output: Intake & Output 11/13/23 11/14/23 11/15/23 11/16/23 23:59 23:59 23:59 23:59 Intake Total 1308 1716 866 Balance 1308 1716 866 Meds/Results Medications: Active Medications Generic Name Dose Route Start Last Admin Trade Name Freq PRN Reason Stop Dose Admin Hydrocodone Bitart/Acetaminophen 1 tab 11/14/23 10:37 Hydrocodone/Acetaminophen (*Crx) 5-325 Mg Tablet PO Q4H PRN Pain Rated 4-6 Hydrocodone Bitart/Acetaminophen 1 tab 11/14/23 10:37 11/16/23 06:32 Hydrocodone/Acetaminophen (*Crx) 7.5-325 Mg Tablet PO 1 tab Q4H PRN Administration Pain Rated 7-10 Albuterol 1 puff 11/14/23 10:37 Albuterol Sulfate (*Sp) Aerosol 1 Puff INHALATION Q4H PRN Shortness Of Breath Alprazolam 0.5 mg 11/14/23 10:37 11/15/23 16:11 Alprazolam (*Crx) 0.5 Mg Tablet PO 0.5 mg TID GAVINO Administration Aripiprazole 2.5 mg 11/14/23 10:55 11/15/23 09:17 Aripiprazole 2.5 Mg Tablet PO 2.5 mg QAM GAVINO Administration Aripiprazole 5 mg 11/14/23 10:55 11/15/23 09:17 Aripiprazole 5 Mg Tablet PO 5 mg QAM GAVINO Administration Atorvastatin Calcium 40 mg 11/15/23 09:00 11/15/23 09:17 Atorvastatin 40 Mg Tablet PO 40 mg DAILY GAVINO Administration Baclofen 20 mg 11/14/23 10:37 Baclofen 10 Mg Tablet PO TID PRN Muscle Spasm Celecoxib 200 mg 11/14/23 17:00 11/15/23 16:10 Celecoxib 200 Mg Capsule PO 200 mg BIDWM GAVINO Administration Cyanocobalamin 1,000 mcg 11/15/23 09:00 11/15/23 09:18 Cyanocobalamin 1,000 Mcg Tablet PO 1,000 mcg DAILY GAVINO Administration Dextrose 12.5 gm 11/14/23 14:22 Dextrose 50% 25 Gm/50 Ml Syringe IV PUSH PRN PRN Hypoglycemia Protocol Dicyclomine HCl 10 mg 11/14/23 10:37 Dicyclomine Hcl 10 Mg Capsule PO TID PRN IBS Diphenhydramine HCl 25 mg 11/14/23 10:37 Diphenhydramine Hcl Inj 50 Mg/Ml Vial IV PUSH Q6H PRN Itching Empagliflozin 25 mg 11/14/23 10:37 11/14/23 12:10 Empagliflozin 25 Mg Tablet PO 25 mg DAILY GAVINO Administration Glucagon 1 mg 11/14/23 14:22 Glucagon For Inj 1 Mg Vial IM PRN PRN Hypoglycemia Protocol Glucose 15 gm 11/14/23 14:22 Glucose Oral Gel 15 Gm Of Glucse In 37.5 Gm Tube PO PRN PRN Hypoglycemia Protocol Hydromorphone HCl 1 mg 11/14/23 10:37 Hydromorphone Hcl Inj (*Crx) 1 Mg/Ml Syr IV PUSH Q2H PRN Breakthrough Pain Rated 7-10 or NPO Hydromorphone HCl 0.5 mg 11/14/23 10:37 11/14/23 13:48 Hydromorphone Hcl Inj (*Crx) 1 Mg/Ml Syr IV PUSH 0.5 mg Q2H PRN Administration Breakthrough Pain Rated 4-6 or NPO Hy
[2023-11-16 07:06] LABS: Basophils Percent Auto 0.2 % (0.2-1.2); Eosinophils Percent Auto 0.4 % (0-4.4); Hematocrit 35.7 % (37.0-47.0); Hemoglobin 12.1 g/dL (12.0-15.0); Immature Granulocyte Absolute 0.05 K/mm3 (0.00-0.031); Immature Granulocyte Percent A 0.6 % (0-0.5); Immature Platelet Fraction Pct 5.9 % (0.9-11.2); Lymphocytes Absolute Auto 1.71 K/mm3 (0.9-3.2); Lymphocytes Percent Auto 20.2 % (18.3-44.2); Mean Corpuscular HGB Conc 33.9 g/dl (32-36); Mean Corpuscular Hemoglobin 34.2 pg (26-34); Mean Corpuscular Volume 100.8 fl (80-100); Mean Platelet Volume 11.3 fl (7.4-10.4); Monocytes Absolute Auto 1.2 K/mm3 (0.1-0.6); Neutrophils Absolute Auto 5.5 K/mm3 (1.3-6.7); Neutrophils Percent Auto 64.6 % (45.5-73.1); Platelet Count Result 110 k/mm3 (150-375); Red Blood Count 3.54 M/mm3 (4.2-5.4); Red Cell Distribution Width 12.1 % (11.5-14.5); White Blood Count 8.5 K/mm3 (4.5-10.0)
[2023-11-16 07:28] LABS: Alanine Aminotransferase 22 U/L (6-35); Albumin Level 3.7 g/dL (3.5-5.1); Alkaline Phosphatase 78 U/L (38-126); Anion Gap 11 mmol/L (4-12); Aspartate Amino Transferase 40 U/L (14-36); Bilirubin,Total 1.3 mg/dL (0.2-1.3); Blood Urea Nitrogen 16 mg/dL (7-17); Calcium 9.7 mg/dL (8.4-10.2); Carbon Dioxide 21 mmol/L (22-30); Chloride 103 mmol/L (98-107); Estimated CRCL calculation 42 ml/min; Estimated Glomerular Filt Rate 41; Glucose 111 mg/dL (65-110); Potassium 3.7 mmol/L (3.4-5.0); Sodium 135 mmol/L (137-145)
[2023-11-16 07:39] LABS: Glucose Point of Care 123 mg/dl (65-105)
[2023-11-16] MEDS: CELECOXIB 200 MG CAPSULE PO ×2 (08:26→16:32)
[2023-11-16] MEDS: ATORVASTATIN 40 MG TABLET PO (08:26)
[2023-11-16] MEDS: ALPRAZolam (*CRX) 0.5 MG TABLET PO ×3 (08:26→16:33)
[2023-11-16] MEDS: hydrOXYzine pamoate 25 MG CAPSULE PO ×3 (08:26→16:32)
[2023-11-16] MEDS: lisinopriL 20 MG TABLET PO (08:26)
[2023-11-16] MEDS: ARIPiprazole 2.5 MG TABLET PO (08:26)
[2023-11-16] MEDS: CYANOCOBALAMIN 1,000 MCG TABLET 1000 MCG PO (08:26)
[2023-11-16] MEDS: ARIPiprazole 5 MG TABLET PO (08:26)
[2023-11-16] MEDS: SENNA/DOCUSATE SODIUM TABLET 2 TAB PO ×2 (08:27→16:33)
--- NOTE | 2023-11-16 09:30 | PM.DS ---
DS: Admitting Diagnosis Discharge Date 03/18/2023 Admitting Diagnosis Osteoarthritis Left Knee DS: Discharge Diagnosis Discharge Diagnosis (1) History of knee replacement procedure of left knee: Code(s): Z96.652 - Presence of left artificial knee joint Status: Acute Assessment and Plan: Patient underwent Total Knee Replacement Left. She has made slow progress in therapy. Will need rehab or placement. DS: Summary Hospital Course Reason for hospitalization: Knee replacement Hospital Course: Patient underwent TKA for arthritis. She has made slow progress in therapy. Will need placement. F/U 2 weeks Status at Discharge Functional status at discharge: uses cane/walker Time Spent with Patient Time attestation: Total time spent providing and/or coordinating discharge services: Exam Narrative: NVI Dressing intact Amublatory with assistance Eyes: General: appearance normal, both eyes and all related structures Neck: Neck: supple Resp: Effort & Inspection: normal respiratory effort Cardio: Rate: regular rate Rhythm: regular rhythm DS: Data Data Completed and Pending Labs on day of discharge: Labs from last 24 hours 11/16/23 11/16/23 11/16/23 07:33 06:24 06:23 WBC 8.5 RBC 3.54 L Hgb 12.1 Hct 35.7 L MCV 100.8 H MCH 34.2 H MCHC 33.9 RDW 12.1 Plt Count 110 L MPV 11.3 H Immature Gran % (Auto) 0.6 H Neut % (Auto) 64.6 Lymph % (Auto) 20.2 [place] % (Auto) 14.0 H Eos % (Auto) 0.4 Baso % (Auto) 0.2 Lymph # (Auto) 1.71 [place] # (Auto) 1.2 H Eos # (Auto) 0.0 Baso # (Auto) 0.0 Abs Immat Gran (auto) 0.05 H Absolute Neuts (auto) 5.5 Absolute Nucleated RBC 0.000 Nucleated RBC % 0.0 % Immature Plt Fraction 5.9 Sodium 135 L Potassium 3.7 Chloride 103 Carbon Dioxide 21 L Anion Gap 11 BUN 16 Creatinine 1.30 H Estim Creat Clear Calc 42 Estimated GFR 41 L Glucose 111 H POC Capillary Glucose 123 H Calcium 9.7 Total Bilirubin 1.3 AST 40 H ALT 22 Alkaline Phosphatase 78 Total Protein 6.0 L Albumin 3.7 11/15/23 11/15/23 11/15/23 21:04 16:25 11:34 WBC RBC Hgb Hct MCV MCH MCHC RDW Plt Count MPV Immature Gran % (Auto) Neut % (Auto) Lymph % (Auto) [place] % (Auto) Eos % (Auto) Baso % (Auto) Lymph # (Auto) [place] # (Auto) Eos # (Auto) Baso # (Auto) Abs Immat Gran (auto) Absolute Neuts (auto) Absolute Nucleated RBC Nucleated RBC % % Immature Plt Fraction Sodium Potassium Chloride Carbon Dioxide Anion Gap BUN Creatinine Estim Creat Clear Calc Estimated GFR Glucose POC Capillary Glucose 104 117 H 130 H Calcium Total Bilirubin AST ALT Alkaline Phosphatase Total Protein Albumin Discharge Plan Discharge Attending physician on discharge: Ruben Del Valle Consulting providers: Nidia Allen Discharging Clinician: Ruben Del Valle Patient Disposition: [facility] [facility] Activity: unlimited Diet: as tolerated Patient Instructions: Antibiotic Form, Rivaroxaban (By mouth), How to Stop Smoking (GEN) Stand Alone Forms: General Discharge Information Follow-up/Referrals: Ruben Del Valle MD [Physician] - Discharge Medications: New hydrocodone-acetaminophen 7.5-325 mg tablet 1 tablet PO Q4H PRN (Reason: pain) Qty: 40 0RF doxycycline hyclate 100 mg tablet 100 mg PO DAILY Qty: 10 0RF Continued aripiprazole 15 mg tablet 7.5 mg PO DAILY lisinopril 20 mg tablet 20 mg PO DAILY Jardiance 25 mg tablet 25 mg PO DAILY ergocalciferol (vitamin D2) [Vitamin D2] 1,250 mcg (50,000 unit) capsule 1,250 mcg PO MONTHLY hydroxyzine pamoate 25 mg capsule 25 mg PO TID alprazolam 0.5 mg tablet 0.5 mg PO TID atorvastatin 40 mg tablet 40
--- NOTE | 2023-11-16 11:17 | PM.IMPN ---
Progress Note: A&P Assessment and Plan (1) Status post total knee replacement, left: Code(s): Z96.652 - Presence of left artificial knee joint Status: Acute Assessment and Plan: Postop day 1 knee arthroplasty for osteoarthritis Ancef 3 doses for surgical prophylaxis Pain regimen, DVT prophylaxis per ortho. Xarelto for 12 doses. Bowel regimen with senna, Miralax PT/OT consulted, recs appreciated Post op low grade temperature 100.1. Add IS. Temp this morning 98.1 F. Patient to discharge to [facility] in [place] today for rehab. (2) Bipolar disorder: Code(s): F31.9 - Bipolar disorder, unspecified Status: Acute Assessment and Plan: Stable. Resuming home medications Xanax, Abilify, and hydroxyzine. Fluvoxamine is non-formulary. If patient can have someone bring from home it would be fine to resume. (3) Hypertension: Code(s): I10 - Essential (primary) hypertension Status: Acute Assessment and Plan: Blood pressures today 126/86. Lisinopril 20 mg daily. (4) Diabetes type 2, controlled: Code(s): E11.9 - Type 2 diabetes mellitus without complications Status: Acute Assessment and Plan: Hemoglobin A1C 5.0% Jardiance with restart at discharge. Diabetic diet SSI moderate dose AC/HS accu checks Hypoglycemia protocol Subjective Date/time seen: 11/16/23 11:17 Interval history: Patient denies any pain, shortness of breath or palpitations. Patient reports doing well with therapy. Patient is agreeable to go to [place] for therapy but wants to make sure that she returns to [place] once she has completed rehab. Review of Systems Review of Systems: All systems reviewed & are unremarkable except as noted in HPI and below Exam Const: General: comfortable and no acute distress Resp: Effort & Inspection: normal respiratory effort Auscultation: clear to auscultation bilaterally Cardio: Rate: regular rate Rhythm: regular rhythm GI: GI Palp: Yes Soft to palpation Auscultation: normal bowel sounds Skin: Other: Warm, dry, intact. Generalized bruising. Surgical incision to left knee with surgical dressing clean dry and intact. Neuro: Other: A&O x 4, flat affect. Psych: Other: affect flat Objective Data Vital Signs Vital Signs: Vital Signs - 24 hr 11/15/23 12:00 11/15/23 16:00 11/15/23 20:00 Temperature 96.7 F L 96.6 F L Pulse Rate 102 H 92 92 Respiratory Rate 18 18 18 Blood Pressure 138/74 116/62 Pulse Oximetry 97 94 94 Oxygen Delivery Room Air 11/15/23 20:00 11/15/23 23:36 11/16/23 03:54 Temperature 97.2 F L 98.1 F 97.3 F L Pulse Rate 78 72 98 Respiratory Rate 22 H 20 22 H Blood Pressure 104/72 96/66 L 95/56 L Pulse Oximetry 95 98 95 Oxygen Delivery 11/16/23 07:22 11/16/23 08:23 11/16/23 08:00 Temperature 97.6 F Pulse Rate 110 H Respiratory Rate 20 Blood Pressure 120/59 L 119/60 Pulse Oximetry 94 94 Oxygen Delivery Room Air Intake/Output Intake/Output: Intake & Output 11/13/23 11/14/23 11/15/23 11/16/23 23:59 23:59 23:59 23:59 Intake Total 1308 1716 1310 Balance 1308 1716 1310 Meds/Results Medications: Active Medications Generic Name Dose Route Start Last Admin Trade Name Freq PRN Reason Stop Dose Admin Hydrocodone Bitart/Acetaminophen 1 tab 11/14/23 10:37 Hydrocodone/Acetaminophen (*Crx) 5-325 Mg Tablet PO Q4H PRN Pain Rated 4-6 Hydrocodone Bitart/Acetaminophen 1 tab 11/14/23 10:37 11/16/23 06:32 Hydrocodone/Acetaminophen (*Crx) 7.5-325 Mg Tablet PO 1 tab Q4H PRN Administration Pain Rated 7-10 Albuterol 1 puff 11/14/23 10:37 Albuterol Sulfate (*Sp) Aerosol 1 Puff INHALATION Q4H PRN Shortness Of Breath Alprazolam 0.5 mg 11/14/23 10:37 11/16/23 08:26 Alprazolam (*Crx) 0.5 Mg Tablet PO 0.5 mg TID GAVINO Administration Aripiprazole 2.5 mg 11/14/23 10:55 11/16/23 08:26 Aripi
[2023-11-16 11:34] LABS: Glucose Point of Care 110 mg/dl (65-105)
[2023-11-16 11:42] LABS: SARS-CoV-2 RNA PCR Negative (Negative)
[2023-11-16] MEDS: RIVAROXABAN 10 MG TABLET PO (16:32)
[2023-11-16 16:34] LABS: Glucose Point of Care 93 mg/dl (65-105)
[2023-11-16] MEDS: PRAZOSIN HCL 1 MG CAPSULE PO (21:04)
[2023-11-16] MEDS: FLUVOXAMINE 50 MG PO (21:05)
[2023-11-16 21:41] LABS: Glucose Point of Care 107 mg/dl (65-105)
[2023-11-17 04:00] VITALS: BP 109/69; PULSE 96; RESP 16; TEMP 36.4; O2SAT 95
[2023-11-17] MEDS: HYDROcodone/acetaminophen (*CRX) 7.5-325 MG TABLET 1 TAB PO ×3 (05:25→20:20)
[2023-11-17 08:00] VITALS: BP 131/69; PULSE 100; RESP 20; TEMP 35.9; O2SAT 100; O2SAT 95
[2023-11-17 08:29] LABS: Glucose Point of Care 118 mg/dl (65-105)
[2023-11-17] MEDS: SENNA/DOCUSATE SODIUM TABLET 2 TAB PO ×2 (08:55→16:27)
[2023-11-17] MEDS: ARIPiprazole 5 MG TABLET PO (08:55)
[2023-11-17] MEDS: ARIPiprazole 2.5 MG TABLET PO (08:55)
[2023-11-17] MEDS: ATORVASTATIN 40 MG TABLET PO (08:55)
[2023-11-17] MEDS: CYANOCOBALAMIN 1,000 MCG TABLET 1000 MCG PO (08:55)
[2023-11-17] MEDS: CELECOXIB 200 MG CAPSULE PO ×2 (08:55→16:26)
[2023-11-17] MEDS: ALPRAZolam (*CRX) 0.5 MG TABLET PO ×3 (08:55→20:23)
[2023-11-17] MEDS: hydrOXYzine pamoate 25 MG CAPSULE PO ×3 (08:55→16:27)
[2023-11-17] MEDS: lisinopriL 20 MG TABLET PO (08:56)
--- NOTE | 2023-11-17 09:11 | PC.NURSE ---
Carolina Ledesma [employer] notified of patient more confused today. Does not know where she is or year.
[2023-11-17 10:12] LABS: Basophils Percent Auto 0.3 % (0.2-1.2); Eosinophils Percent Auto 0.4 % (0-4.4); Hematocrit 35.6 % (37.0-47.0); Immature Granulocyte Absolute 0.03 K/mm3 (0.00-0.031); Immature Granulocyte Percent A 0.4 % (0-0.5); Immature Platelet Fraction Pct 7.2 % (0.9-11.2); Lymphocytes Absolute Auto 1.26 K/mm3 (0.9-3.2); Lymphocytes Percent Auto 16.6 % (18.3-44.2); Mean Corpuscular HGB Conc 33.7 g/dl (32-36); Mean Corpuscular Hemoglobin 33.9 pg (26-34); Mean Corpuscular Volume 100.6 fl (80-100); Mean Platelet Volume 10.6 fl (7.4-10.4); Monocytes Absolute Auto 0.8 K/mm3 (0.1-0.6); Monocytes Percent Auto 10.8 % (2.6-8.5); Neutrophils Absolute Auto 5.4 K/mm3 (1.3-6.7); Neutrophils Percent Auto 71.5 % (45.5-73.1); Platelet Count Result 113 k/mm3 (150-375); Red Blood Count 3.54 M/mm3 (4.2-5.4); White Blood Count 7.6 K/mm3 (4.5-10.0)
[2023-11-17 10:19] LABS: Ammonia < 9 umol/L (9-30); Lactic Acid Reflex 1.6 mmol/L (0.7-2.0)
[2023-11-17 10:20] LABS: Alanine Aminotransferase 35 U/L (6-35); Albumin Level 3.9 g/dL (3.5-5.1); Alkaline Phosphatase 88 U/L (38-126); Anion Gap 8 mmol/L (4-12); Aspartate Amino Transferase 47 U/L (14-36); Bilirubin,Total 1.2 mg/dL (0.2-1.3); Blood Urea Nitrogen 18 mg/dL (7-17); Calcium 9.6 mg/dL (8.4-10.2); Carbon Dioxide 24 mmol/L (22-30); Chloride 103 mmol/L (98-107); Estimated CRCL calculation 46 ml/min; Estimated Glomerular Filt Rate 45; Glucose 108 mg/dL (65-110); Magnesium 2.1 mg/dL (1.6-2.3); Potassium 3.9 mmol/L (3.4-5.0); Sodium 135 mmol/L (137-145)
--- NOTE | 2023-11-17 10:50 | PM.IMPN ---
Progress Note: A&P Assessment and Plan (1) Status post total knee replacement, left: Code(s): Z96.652 - Presence of left artificial knee joint Status: Acute Assessment and Plan: Postop day 1 knee arthroplasty for osteoarthritis Ancef 3 doses for surgical prophylaxis Pain regimen, DVT prophylaxis per ortho. Xarelto for 12 doses. Bowel regimen with senna, Miralax PT/OT consulted, recs appreciated Post op low grade temperature 100.1. Add IS. Temp this morning 98.1 F. Patient to discharge to [facility] in [place] today for rehab. (2) Altered mental status: Code(s): R41.82 - Altered mental status, unspecified Status: Acute Assessment and Plan: normal neuro exam. oriented x 2. UA 3 + glucose and trace ketones. CBC and CMP stable. AST 47. Ammonia < 9. Lactic acid 1.6. Alprazolam to be held if somnolent or confused. Monitor patient. (3) Bipolar disorder: Code(s): F31.9 - Bipolar disorder, unspecified Status: Acute Assessment and Plan: Stable. Resuming home medications Xanax, Abilify, and hydroxyzine. Fluvoxamine is non-formulary. If patient can have someone bring from home it would be fine to resume. (4) Hypertension: Code(s): I10 - Essential (primary) hypertension Status: Acute Assessment and Plan: Blood pressures today 131/69 Lisinopril 20 mg daily. (5) Diabetes type 2, controlled: Code(s): E11.9 - Type 2 diabetes mellitus without complications Status: Acute Assessment and Plan: Hemoglobin A1C 5.0% Jardiance with restart at discharge. Diabetic diet SSI moderate dose AC/HS accu checks Hypoglycemia protocol Glucose 108 this morning. Subjective Date/time seen: 11/17/23 10:50 Interval history: Patient reported to be confused this morning. Patient denies chest pain, palpitations, headache, dizziness, nausea, or vomiting. Care coordination awaiting insurance approval for rehab and needed surgeon to do a peer to peer. Patient must be able to care for herself including cooking and carrying a laundry basket before she can go back to [place]. 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 Objective Data Vital Signs Vital Signs: Vital Signs - 24 hr 11/16/23 11:42 11/16/23 16:00 11/16/23 20:00 Temperature 98.1 F 96.6 F L 97.5 F L Pulse Rate 100 81 90 Respiratory Rate 20 20 16 Blood Pressure 126/86 94/48 L 124/66 Pulse Oximetry 95 98 98 Oxygen Delivery 11/16/23 20:00 11/16/23 23:54 11/17/23 04:00 Temperature 97.7 F 97.6 F Pulse Rate 90 95 96 Respiratory Rate 16 16 16 Blood Pressure 114/62 109/69 Pulse Oximetry 98 95 95 Oxygen Delivery Room Air 11/17/23 08:00 Temperature Pulse Rate Respiratory Rate Blood Pressure Pulse Oximetry 95 Oxygen Delivery Room Air Intake/Output Intake/Output: Intake & Output 11/14/23 11/15/23 11/16/23 11/17/23 23:59 23:59 23:59 23:59 Intake Total 1308 1716 2216 400 Balance 1308 1716 2216 400 Meds/Results Medications: Active Medications Generic Name Dose Route Start Last Admin Trade Name Freq PRN Reason Stop Dose Admin Hydrocodone Bitart/Acetaminophen 1 tab 11/14/23 10:37 Hydrocodone/Acetaminophen (*Crx) 5-325 Mg Tablet PO Q4H PRN Pain Rated 4-6 Hydrocodone Bitart/Acetaminophen 1 tab 11/14/23 10:37 11/17/23 05:25 Hydrocodone/Acetaminophen (*Crx) 7.5-325 Mg Tablet PO 1 tab Q4H PRN Administration Pain Rated 7-10 Albuterol 1
[2023-11-17 11:49] LABS: Add Urine Microscopic? NO; Appearance Urine Clear (Clear); Bilirubin Urine Negative (Negative); Blood Urine Negative (Negative); Color Urine Yellow (Yellow); Glucose Urine UA 3+ mg/dL (Negative); Ketones Urine Trace mg/dL (Negative); Leukocyte Esterase Ur Negative LEU/UL (Negative); Nitrate Urine Negative (Negative); Protein Urine Negative (Negative); Specific Grav Ur 1.015 (1.001-1.035); pH Urine 5.5 (5.0-9.0)
[2023-11-17 12:00] VITALS: BP 141/54; PULSE 68; RESP 20; TEMP 36.1; O2SAT 98
[2023-11-17 12:05] LABS: Glucose Point of Care 93 mg/dl (65-105)
[2023-11-17 16:00] VITALS: BP 118/60; PULSE 80; RESP 22; TEMP 36.4; O2SAT 100
[2023-11-17] MEDS: RIVAROXABAN 10 MG TABLET PO (16:27)
[2023-11-17 17:03] LABS: Glucose Point of Care 124 mg/dl (65-105)
[2023-11-17 20:00] VITALS: BP 124/77; PULSE 106; RESP 16; TEMP 36.6; O2SAT 99
[2023-11-17 20:07] LABS: Glucose Point of Care 121 mg/dl (65-105)
[2023-11-17] MEDS: PRAZOSIN HCL 1 MG CAPSULE PO (20:19)
[2023-11-17] MEDS: FLUVOXAMINE 50 MG 150 EACH PO (21:11)
[2023-11-17] MEDS: HYDROmorphone HCL INJ (*CRX) 1 MG/ML SYR IV PUSH (22:59)
[2023-11-18 00:35] VITALS: BP 135/68; PULSE 108; RESP 20; TEMP 36.6; O2SAT 93
[2023-11-18] MEDS: HYDROcodone/acetaminophen (*CRX) 7.5-325 MG TABLET 1 TAB PO (03:31)
[2023-11-18 05:40] VITALS: BP 137/65; PULSE 112; RESP 18; TEMP 37.4; O2SAT 96
[2023-11-18 07:54] LABS: Glucose Point of Care 130 mg/dl (65-105)
[2023-11-18 08:00] VITALS: BP 118/74; PULSE 94; RESP 16; TEMP 36.7; O2SAT 96
[2023-11-18 08:14] LABS: Basophils Percent Auto 0.4 % (0.2-1.2); Eosinophils Absolute Auto 0.1 K/mm3 (0-0.3); Eosinophils Percent Auto 0.9 % (0-4.4); Hematocrit 34.5 % (37.0-47.0); Hemoglobin 11.1 g/dL (12.0-15.0); Immature Granulocyte Absolute 0.05 K/mm3 (0.00-0.031); Immature Granulocyte Percent A 0.6 % (0-0.5); Lymphocytes Absolute Auto 1.55 K/mm3 (0.9-3.2); Lymphocytes Percent Auto 19.3 % (18.3-44.2); Mean Corpuscular HGB Conc 32.2 g/dl (32-36); Mean Corpuscular Hemoglobin 33.2 pg (26-34); Mean Corpuscular Volume 103.3 fl (80-100); Mean Platelet Volume 11.1 fl (7.4-10.4); Monocytes Absolute Auto 0.9 K/mm3 (0.1-0.6); Monocytes Percent Auto 11.7 % (2.6-8.5); Neutrophils Absolute Auto 5.4 K/mm3 (1.3-6.7); Neutrophils Percent Auto 67.1 % (45.5-73.1); Platelet Count Result 143 k/mm3 (150-375); Red Blood Count 3.34 M/mm3 (4.2-5.4); Red Cell Distribution Width 11.9 % (11.5-14.5); White Blood Count 8.1 K/mm3 (4.5-10.0)
[2023-11-18 08:27] LABS: Alanine Aminotransferase 38 U/L (6-35); Albumin Level 3.5 g/dL (3.5-5.1); Alkaline Phosphatase 86 U/L (38-126); Anion Gap 9 mmol/L (4-12); Aspartate Amino Transferase 46 U/L (14-36); Bilirubin,Total 1.1 mg/dL (0.2-1.3); Blood Urea Nitrogen 23 mg/dL (7-17); Calcium 9.1 mg/dL (8.4-10.2); Carbon Dioxide 18 mmol/L (22-30); Chloride 104 mmol/L (98-107); Estimated CRCL calculation 42 ml/min; Estimated Glomerular Filt Rate 41; Glucose 111 mg/dL (65-110); Potassium 4.2 mmol/L (3.4-5.0); Sodium 131 mmol/L (137-145)
[2023-11-18] MEDS: CYANOCOBALAMIN 1,000 MCG TABLET 1000 MCG PO (08:39)
[2023-11-18] MEDS: ARIPiprazole 2.5 MG TABLET PO (08:39)
[2023-11-18] MEDS: ATORVASTATIN 40 MG TABLET PO (08:39)
[2023-11-18] MEDS: CELECOXIB 200 MG CAPSULE PO (08:39)
[2023-11-18] MEDS: ARIPiprazole 5 MG TABLET PO (08:39)
[2023-11-18] MEDS: SENNA/DOCUSATE SODIUM TABLET 2 TAB PO (08:39)
[2023-11-18] MEDS: lisinopriL 20 MG TABLET PO (08:40)
[2023-11-18] MEDS: hydrOXYzine pamoate 25 MG CAPSULE PO ×2 (08:40→12:29)
[2023-11-18] MEDS: polyethylene glycoL 3350 17 GM POWD.PACK PO (08:40)
--- NOTE | 2023-11-18 09:25 | PM.IMPN ---
Progress Note: A&P Assessment and Plan (1) Status post total knee replacement, left: Code(s): Z96.652 - Presence of left artificial knee joint Status: Acute Assessment and Plan: Postop day 1 knee arthroplasty for osteoarthritis Ancef 3 doses for surgical prophylaxis Pain regimen, DVT prophylaxis per ortho. Xarelto for 12 doses. Bowel regimen with senna, Miralax PT/OT consulted, recs appreciated Post op low grade temperature 100.1. Add IS. Temp this morning 98.1 F. Patient to discharge to [facility] in [place] today for rehab. Elevate leg when possible. (2) Altered mental status: Code(s): R41.82 - Altered mental status, unspecified Status: Acute Assessment and Plan: improved. A&Ox3. (3) Bipolar disorder: Code(s): F31.9 - Bipolar disorder, unspecified Status: Acute Assessment and Plan: Stable. Resuming home medications Xanax, Abilify, and hydroxyzine. Fluvoxamine is non-formulary. If patient can have someone bring from home it would be fine to resume. (4) Hypertension: Code(s): I10 - Essential (primary) hypertension Status: Acute Assessment and Plan: Blood pressures today 126/69 Lisinopril 20 mg daily. (5) Diabetes type 2, controlled: Code(s): E11.9 - Type 2 diabetes mellitus without complications Status: Acute Assessment and Plan: Hemoglobin A1C 5.0% Jardiance with restart at discharge. Diabetic diet SSI moderate dose AC/HS accu checks Hypoglycemia protocol Glucose 111 this morning. Subjective Date/time seen: 11/18/23 09:25 Interval history: Patient denies chest pain, palpitations, headache, or dizziness. Patient reports pain in her left knee is a 9 , constant, aching, and throbbing. Patient sitting up in bed eating breakfast. Review of Systems Review of Systems: All systems reviewed & are unremarkable except as noted in HPI and below Exam Const: General: uncomfortable Neck: Neck: supple Resp: Effort & Inspection: normal respiratory effort Auscultation: clear to auscultation bilaterally Cardio: Rate: regular rate Rhythm: regular rhythm GI: GI Palp: Yes Soft to palpation Auscultation: normal bowel sounds Skin: General skin exam: no rashes or lesions noted Other: Left knee dressing intact with scant dried blood on dressing. Telfa with transparent dressing. Neuro: Speech: normal speech Extrem: General: edema left (knee trace slightly pink on medial knee. ) Psych: Affect: normal affect Other: A&Ox3. Objective Data Vital Signs Vital Signs: Vital Signs - 24 hr 11/17/23 12:00 11/17/23 16:00 11/17/23 20:00 Temperature 97.0 F L 97.6 F 98 F Pulse Rate 68 80 106 H Respiratory Rate 20 22 H 16 Blood Pressure 141/54 H 118/60 124/77 Pulse Oximetry 98 100 99 11/18/23 00:35 11/18/23 05:40 11/18/23 08:00 Temperature 97.8 F 99.4 F 98.1 F Pulse Rate 108 H 112 H 94 Respiratory Rate 20 18 16 Blood Pressure 135/68 137/65 118/74 Pulse Oximetry 93 96 96 Intake/Output Intake/Output: Intake & Output 11/15/23 11/16/23 11/17/23 11/18/23 23:59 23:59 23:59 23:59 Intake Total 1716 2216 1600 Balance 1716 2216 1600 Meds/Results Medications: Active Medications Generic Name Dose Route Start Last Admin Trade Name Freq PRN Reason Stop Dose Admin Hydrocodone Bitart/Acetaminophen 1 tab 11/14/23 10:37 Hydrocodone/Acetaminophen (*Crx) 5-325 Mg Tablet PO Q4H PRN Pain Rated 4-6 Hydrocodone Bitart/Acetaminophen 1 tab 11/14/23 10:37 11/18/23 03:31 Hydrocodone/Acetaminophen (*Crx) 7.5-325 Mg Tablet PO 1 tab Q4H PRN Administration Pain Rated 7-10 Albuterol 1 puff 11/14/23 10:37 Albuterol Sulfate (*Sp) Aerosol 1 Puff INHALATION Q4H PRN Shortness Of Breath Alprazolam 0.5 mg 11/14/23 10:37 11/17/23 20:23 Alprazolam (*Crx) 0.5 Mg Tablet PO 0.5 mg TID GAVINO Administration Aripiprazole 2.5 mg 10
[2023-11-18 09:50] VITALS: BP 126/69
[2023-11-18 12:00] VITALS: BP 128/72; PULSE 108; RESP 16; TEMP 36.6; O2SAT 96
[2023-11-18 12:05] LABS: SARS-CoV-2 RNA PCR Negative (Negative)
--- NOTE | 2023-11-18 12:07 | PM.PNORT ---
Progress Note: A&P Assessment and Plan (1) History of knee replacement procedure of left knee: Code(s): Z96.652 - Presence of left artificial knee joint Status: Acute Assessment and Plan: Patient is postop day 4. After total knee arthroplasty. She had some erythema in the front of the knee but no drainage. She is scheduled to be discharged to rehab today. Dr. Del Valle has started doxycycline Flagyl for prophylaxis orally. She feels she is doing fine pain is doing much better. Hemoglobin stable 11.1 and platelets have come back up to 143,000. She is afebrile,her glucoses are running in the 120s consistently. Subjective Subjective Date/Time Seen: 11/18/23 12:07 Objective Data Vital Signs Vital Signs: Vital Signs - 24 hr 11/17/23 16:00 11/17/23 20:00 11/18/23 00:35 Temperature 36.4 C 36.6 C 36.6 C Pulse Rate 80 106 H 108 H Respiratory Rate 22 H 16 20 Blood Pressure 118/60 124/77 135/68 Pulse Oximetry 100 99 93 Oxygen Delivery 11/18/23 05:40 11/18/23 08:00 11/18/23 09:50 Temperature 37.4 C 36.7 C Pulse Rate 112 H 94 Respiratory Rate 18 16 Blood Pressure 137/65 118/74 126/69 Pulse Oximetry 96 96 Oxygen Delivery 11/18/23 08:30 Temperature Pulse Rate Respiratory Rate Blood Pressure Pulse Oximetry Oxygen Delivery Room Air Intake/Output Intake/Output: Intake & Output 11/15/23 11/16/23 11/17/23 11/18/23 23:59 23:59 23:59 23:59 Intake Total 1716 2216 1600 222 Balance 1716 2216 1600 222 Meds/Results Medications: Active Medications Generic Name Dose Route Start Last Admin Trade Name Freq PRN Reason Stop Dose Admin Hydrocodone Bitart/Acetaminophen 1 tab 11/14/23 10:37 Hydrocodone/Acetaminophen (*Crx) 5-325 Mg Tablet PO Q4H PRN Pain Rated 4-6 Hydrocodone Bitart/Acetaminophen 1 tab 11/14/23 10:37 11/18/23 03:31 Hydrocodone/Acetaminophen (*Crx) 7.5-325 Mg Tablet PO 1 tab Q4H PRN Administration Pain Rated 7-10 Albuterol 1 puff 11/14/23 10:37 Albuterol Sulfate (*Sp) Aerosol 1 Puff INHALATION Q4H PRN Shortness Of Breath Alprazolam 0.5 mg 11/14/23 10:37 11/17/23 20:23 Alprazolam (*Crx) 0.5 Mg Tablet PO 0.5 mg TID GAVINO Administration Aripiprazole 2.5 mg 11/14/23 10:55 11/18/23 08:39 Aripiprazole 2.5 Mg Tablet PO 2.5 mg QAM GAVINO Administration Aripiprazole 5 mg 11/14/23 10:55 11/18/23 08:39 Aripiprazole 5 Mg Tablet PO 5 mg QAM GAVINO Administration Atorvastatin Calcium 40 mg 11/15/23 09:00 11/18/23 08:39 Atorvastatin 40 Mg Tablet PO 40 mg DAILY GAVINO Administration Baclofen 20 mg 11/14/23 10:37 Baclofen 10 Mg Tablet PO TID PRN Muscle Spasm Celecoxib 200 mg 11/14/23 17:00 11/18/23 08:39 Celecoxib 200 Mg Capsule PO 200 mg BIDWM GAVINO Administration Cyanocobalamin 1,000 mcg 11/15/23 09:00 11/18/23 08:39 Cyanocobalamin 1,000 Mcg Tablet PO 1,000 mcg DAILY GAVINO Administration Dextrose 12.5 gm 11/14/23 14:22 Dextrose 50% 25 Gm/50 Ml Syringe IV PUSH PRN PRN Hypoglycemia Protocol Dicyclomine HCl 10 mg 11/14/23 10:37 Dicyclomine Hcl 10 Mg Capsule PO TID PRN IBS Diphenhydramine HCl 25 mg 11/14/23 10:37 Diphenhydramine Hcl Inj 50 Mg/Ml Vial IV PUSH Q6H PRN Itching Doxycycline Hyclate 100 mg 11/18/23 17:00 Doxycycline Hyclate 100 Mg Tablet PO BID GAVINO Empagliflozin 25 mg 11/14/23 10:37 11/14/23 12:10 Empagliflozin 25 Mg Tablet PO 25 mg DAILY GAVINO Administration Glucagon 1 mg 11/14/23 14:22 Glucagon For Inj 1 Mg Vial IM PRN PRN Hypoglycemia Protocol Glucose 15 gm 11/14/23 14:22 Glucose Oral Gel 15 Gm Of Glucse In 37.5 Gm Tube PO PRN PRN Hypoglycemia Protocol Hydromorphone HCl 1 mg 11/14/23 10:37 11/17/23 22:59 Hydromorphone Hcl Inj (*Crx) 1 Mg/Ml Syr IV PUSH 1 mg Q2H PRN Administration Breakthrough Pain Rated 7-10 o
[2023-11-18 12:17] LABS: Glucose Point of Care 112 mg/dl (65-105)
[2023-11-18] MEDS: HYDROcodone/acetaminophen (*CRX) 5-325 MG TABLET 1 TAB PO (12:31)
== END 2023-11-18 14:20 ==
LOC: ANHSURGERY 15:59 → ANH3MEDSUR 15:59
PROVIDERS: Nurse Practitioner; Nurse Practitioner Acute Care; Nurse Practitioner Family; Admitting Provider Orthopaedic Surgery; PCP Internal Medicine; Visit Provider Orthopaedic Surgery
PROC: (CPT 27447; principal; 2023-11-14 07:30)
DX: M17.12 Unilateral primary osteoarthritis, left knee (principal); G89.18 Other acute postprocedural pain; R41.82 Altered mental status, unspecified; E66.9 Obesity, unspecified; Z68.32 Body mass index [BMI] 32.0-32.9, adult; F31.9 Bipolar disorder, unspecified; E11.9 Type 2 diabetes mellitus without complications; I10 Essential (primary) hypertension; K21.9 Gastro-esophageal reflux disease without esophagitis; F17.210 Nicotine dependence, cigarettes, uncomplicated; E78.5 Hyperlipidemia, unspecified; F42.9 Obsessive-compulsive disorder, unspecified; Z20.822 Contact with and (suspected) exposure to COVID-19; Z79.84 Long term (current) use of oral hypoglycemic drugs; Z79.85 Long-term (current) use of injectable non-insulin antidiabetic drugs; Z79.51 Long term (current) use of inhaled steroids; Z79.899 Other long term (current) drug therapy; Z85.42 Personal history of malignant neoplasm of other parts of uterus
CPT/HCPCS: 27447; 64447; 36415; 73560; 80048; 80053; 80307; 81003; 82040; 82140; 82948; 83036; 83605; 83735; 85025; 85055; 86850; 86900; 86901; 87635; 87641; 93005; 97110; 97116; 97161; 97165; 97530; 97535; A9270; C1713; C1776; G0378; J0171; J0690; J1100; J1171; J1741; J2003; J2250; J2270; J2371; J2405; J2704; J2795; J3010; J3370; J7120